=== PATIENT | female | born 1975 | race Caucasian/White ===

== ENCOUNTER 2023-01-24 18:29 | Emergency (ER) | payer OTHER ==
[~2023-01-24] VITALS: Ht 162.6 cm; Wt 77.1 kg
[2023-01-24 18:54] VITALS: BP_SYST 111
[2023-01-24 20:15] VITALS: BP_SYST 122
== END 2023-01-24 20:15 | disposition home or self-care (01) ==
LOC: SED 18:29
DX: T81.30XA Disruption of wound, unspecified, initial encounter (principal); Z48.00 Encounter for change or removal of nonsurgical wound dressing; Z79.899 Other long term (current) drug therapy
CPT/HCPCS: 99282

== ENCOUNTER 2023-05-16 14:14 | Inpatient (IN) | payer OTHER ==
[~2023-05-16] VITALS: Ht 160 cm; Wt 64.0 kg
[2023-05-16 14:32] VITALS: BP_SYST 118; PULSE 89; RESP 19; TEMP 98.1; O2SAT 96
[2023-05-16] MEDS ORDERED: METOCLOPRAMIDE HCL 10 MG/2 ML VIAL IVP ONE (15:00)
[2023-05-16] MEDS ORDERED: NACL 0.9% 1,000 ML IV ONE (15:00)
[2023-05-16] MEDS ORDERED: MORPHINE 4 MG INJ. 4 MG/ML VIAL IVP ONE (15:00)
[2023-05-16] MEDS ORDERED: DIPHENHYDRAMINE INJ 50 MG/ML VIAL IVP ONE (15:00)
[2023-05-16] MEDS ORDERED: KETOROLAC TROMETHAMINE 30 MG VIAL IVP ONE (15:00)
[2023-05-16 15:36] LABS: BILIRUBIN,URINE 1+ (NEGATIVE); BLOOD, URINE NEGATIVE (NEGATIVE); GLUCOSE,URINE NEGATIVE (NEGATIVE); KETONES,URINE 1+ (NEGATIVE); LEUKOCYTE ESTERASE ,URINE NEGATIVE (NEGATIVE); NITRITE, URINE NEGATIVE (NEGATIVE); PROTEIN URINE NEGATIVE (NEGATIVE); UROBILINOGEN,URINE 0.2 (0.2-1.0)
[2023-05-16] MEDS ORDERED: ONDANSETRON 4 MG ODT TAB PO ONE (16:00)
[2023-05-16] MEDS ORDERED: MORPHINE 4 MG INJ. 4 MG/ML VIAL IM ONE (16:00)
[2023-05-16 16:04] LABS: BASOPHILS # (AUTO) 0.1 K/uL (0.0-0.2); BASOPHILS % (AUTO) 0.4 % (0.0-2.0); HEMATOCRIT 39.3 % (36-48); HEMOGLOBIN 12.7 g/dL (12.0-16.0); LYMPHOCYTES # (AUTO) 1.2 K/uL (1.0-5.5); LYMPHOCYTES % (AUTO) 10.6 % (20.5-51.5); MEAN CORPUSCULAR HEMOGLOBIN 28 pg (27-31); MEAN CORPUSCULAR HGB CONC 32 % (32-36); MEAN CORPUSCULAR VOLUME 86 fL (79.0-98.0); MONOCYTES # (AUTO) 0.8 K/uL (0.0-1.0); MONOCYTES % (AUTO) 6.8 % (1.7-9.3); NEUTROPHILS # (AUTO) 9.6 K/uL (1.8-7.7); NEUTROPHILS % (AUTO) 82.2 % (40.0-70.0); PLATELET COUNT (AUTO) 392 K/uL (130-430); RED BLOOD CELL COUNT(AUTO) 4.59 MIL/uL (4.2-6.2); RED CELL DISTRIBUTION WIDTH 14.1 % (9.0-15.0); WHITE BLOOD COUNT (AUTO) 11.7 K/uL (4.8-10.8)
[2023-05-16 16:25] LABS: CALCIUM 8.9 mg/dL (8.4-11.0); CREATININE 0.55 mg/dL (0.55-1.30); POTASSIUM 3.6 mmol/L (3.5-5.1)
[2023-05-16 16:30] LABS: SERUM HCG (QUALITATIVE) NEGATIVE (NEGATIVE)
[2023-05-16 16:31] LABS: ALBUMIN 2.9 g/dL (3.4-4.8); TOTAL BILIRUBIN 0.6 mg/dL (0.0-1.0); TOTAL PROTEIN, SERUM 6.7 g/dL (6.4-8.3)
[2023-05-16 16:52] LABS: CLARITY/URINE CLEAR (CLEAR); COLOR,URINE YELLOW (YELLOW)
[2023-05-16] MEDS ORDERED: KETOROLAC TROMETHAMINE 30 MG VIAL ONE (17:26)
[2023-05-16] MEDS ORDERED: DIPHENHYDRAMINE INJ 50 MG/ML VIAL ONE (17:27)
[2023-05-16] MEDS ORDERED: LEVO100T PO (21:35)
[2023-05-16] MEDS ORDERED: TRAM50TA2 PO (21:35)
[2023-05-16] MEDS ORDERED: NACL 0.9% 1,000 ML IV SCH (23:15)
[2023-05-16] MEDS ORDERED: ACETAMINOPHEN 325 MG TABLET PO PRN (23:15)
[2023-05-16] MEDS ORDERED: HYDROcodone/ACETAMIN 10-325 MG TAB PO PRN (23:15)
[2023-05-16] MEDS ORDERED: ONDANSETRON HCL 4 MG/2 ML VIAL IVP PRN (23:15)
[2023-05-16] MEDS ORDERED: HYDROcodone/ACETAMIN 5-325 MG TAB (NORCO/ VICODIN) PO PRN (23:15)
[2023-05-17] MEDS ORDERED: KETOROLAC TROMETHAMINE 30 MG VIAL IM SCH
[2023-05-17] MEDS ORDERED: PIPERACILLIN/TAZO 3.375/DEX-IS 50 ML IV SCH
[2023-05-17] MEDS: CIPROFLOXACIN LACT 400 MG/D5W 200 ML IV SCH ×3 (03:30→20:48)
[2023-05-17] MEDS: metroNIDAZOLE 500 mg/NS 100 ML IV SCH ×4 (03:31→22:50)
[2023-05-17] MEDS ORDERED: NACL 0.9% 1,000 ML IV ONE (06:30)
[2023-05-17] MEDS ORDERED: MORPHINE 4 MG INJ. 4 MG/ML VIAL IVP ONE (07:30)
[2023-05-17 07:40] LABS: BASOPHILS % (AUTO) 0.5 % (0.0-2.0); EOSINOPHILS # (AUTO) 0.1 K/uL (0.0-0.4); EOSINOPHILS % (AUTO) 0.8 % (0.0-4.0); HEMATOCRIT 36.1 % (36-48); HEMOGLOBIN 11.4 g/dL (12.0-16.0); LYMPHOCYTES # (AUTO) 1.9 K/uL (1.0-5.5); LYMPHOCYTES % (AUTO) 20.7 % (20.5-51.5); MEAN CORPUSCULAR HEMOGLOBIN 27 pg (27-31); MEAN CORPUSCULAR HGB CONC 32 % (32-36); MEAN CORPUSCULAR VOLUME 87 fL (79.0-98.0); MONOCYTES # (AUTO) 0.8 K/uL (0.0-1.0); MONOCYTES % (AUTO) 8.9 % (1.7-9.3); NEUTROPHILS # (AUTO) 6.4 K/uL (1.8-7.7); NEUTROPHILS % (AUTO) 69.1 % (40.0-70.0); PLATELET COUNT (AUTO) 323 K/uL (130-430); RED BLOOD CELL COUNT(AUTO) 4.18 MIL/uL (4.2-6.2); RED CELL DISTRIBUTION WIDTH 13.7 % (9.0-15.0); WHITE BLOOD COUNT (AUTO) 9.3 K/uL (4.8-10.8)
[2023-05-17 07:59] LABS: ALBUMIN 2.1 g/dL (3.4-4.8); CALCIUM 7.8 mg/dL (8.4-11.0); CREATININE 0.49 mg/dL (0.55-1.30); POTASSIUM 3.6 mmol/L (3.5-5.1); TOTAL BILIRUBIN 0.5 mg/dL (0.0-1.0); TOTAL PROTEIN, SERUM 5.4 g/dL (6.4-8.3)
[2023-05-17] MEDS ORDERED: KETOROLAC TROMETHAMINE 60 MG/2 ML VIAL IM PRN (08:30)
[2023-05-17] MEDS: LEVOTHYROXINE SODIUM 0.1 MG TABLET PO SCH (09:22)
[2023-05-17] MEDS: MIDODRINE HCL 5 MG TABLET (PROAMATINE) PO SCH ×3 (10:00→20:48)
[2023-05-17 16:30] VITALS: BP_SYST 112; PULSE 78; RESP 18; TEMP 98
[2023-05-17] MEDS: MORPHINE 2 MG/ML INJ. SYRINGE IVP PRN (16:35)
[2023-05-17 18:33] VITALS: BP_SYST 112; PULSE 68; RESP 18; TEMP 97.8
[2023-05-17 20:00] VITALS: BP_SYST 101; PULSE 64; RESP 18; TEMP 97.7
[2023-05-17] MEDS: HYDROcodone/ACETAMIN 5-325 MG TAB (NORCO/ VICODIN) PO PRN (21:15)
[2023-05-17 21:54] VITALS: O2SAT 98
[2023-05-18] MEDS: MORPHINE 2 MG/ML INJ. SYRINGE IVP PRN (04:18)
[2023-05-18] MEDS: metroNIDAZOLE 500 mg/NS 100 ML IV SCH (06:06)
[2023-05-18 06:07] VITALS: BP_SYST 102; PULSE 64; RESP 18; TEMP 97.7; O2SAT 97
[2023-05-18] MEDS: HYDROcodone/ACETAMIN 5-325 MG TAB (NORCO/ VICODIN) PO PRN (06:17)
[2023-05-18] MEDS: LEVOTHYROXINE SODIUM 0.1 MG TABLET PO SCH (06:32)
[2023-05-18 08:00] VITALS: BP_SYST 95; PULSE 72; RESP 18; TEMP 98.8; O2SAT 95
[2023-05-18] MEDS: MIDODRINE HCL 5 MG TABLET (PROAMATINE) PO SCH (08:51)
[2023-05-18] MEDS: CIPROFLOXACIN LACT 400 MG/D5W 200 ML IV SCH (08:59)
[2023-05-18 12:00] VITALS: BP_SYST 98; PULSE 70; RESP 18; TEMP 98.2; O2SAT 95
[2023-05-18] MEDS ORDERED: CIPR-260 PO (14:55)
[2023-05-18] MEDS ORDERED: METR-154 PO (14:55)
[2023-05-18 15:04] VITALS: BP_SYST 100; PULSE 75; RESP 18; TEMP 98.2; O2SAT 95
== END 2023-05-18 15:30 | disposition home or self-care (01) | DRG 392 ==
LOC: SED 14:14 → SMU 23:01
PROVIDERS: ADMIT Family Medicine; ATTEND Family Medicine
DX: A09 Infectious gastroenteritis and colitis, unspecified (principal); L02.211 Cutaneous abscess of abdominal wall; E44.1 Mild protein-calorie malnutrition; E87.1 Hypo-osmolality and hyponatremia; E86.0 Dehydration; I10 Essential (primary) hypertension; E03.9 Hypothyroidism, unspecified; F10.10 Alcohol abuse, uncomplicated; Y90.9 Presence of alcohol in blood, level not specified; Z90.710 Acquired absence of both cervix and uterus; Z90.49 Acquired absence of other specified parts of digestive tract; Z80.1 Family history of malignant neoplasm of trachea, bronchus and lung; Z68.25 Body mass index [BMI] 25.0-25.9, adult; D18.03 Hemangioma of intra-abdominal structures
CPT/HCPCS: 36415; 76376; 76705; 80053; 81001; 81003; 83605; 83690; 84703; 85025; 87040; 99285; J0744; J1200; J1885; J2270; J2405; J3490; Q0162; Q9967

== ENCOUNTER 2023-07-04 08:38 | Outpatient (CLI) | payer OTHER ==
[~2023-07-04 08:38] MED LIST: CIPR-260 PO; LEVO100T PO; METR-154 PO; TRAM50TA2 PO
== END 2023-07-04 18:25 | disposition home or self-care (01) ==
LOC: SCT 08:38
PROVIDERS: ADMIT Family Medicine; ATTEND Internal Medicine Infectious Disease
DX: D18.09 Hemangioma of other sites (principal); K59.09 Other constipation; N83.202 Unspecified ovarian cyst, left side; K44.9 Diaphragmatic hernia without obstruction or gangrene; R10.84 Generalized abdominal pain; I87.8 Other specified disorders of veins
CPT/HCPCS: 76376

== ENCOUNTER 2023-07-11 18:40 | Emergency (ER) | payer OTHER ==
[~2023-07-11] VITALS: Ht 165.1 cm; Wt 87.1 kg
[2023-07-11 18:53] VITALS: BP_SYST 122; PULSE 80; RESP 18; TEMP 98.1; O2SAT 100
[2023-07-11 20:55] LABS: BASOPHILS # (AUTO) 0.1 K/uL (0.0-0.2); EOSINOPHILS # (AUTO) 0.1 K/uL (0.0-0.4); EOSINOPHILS % (AUTO) 1.3 % (0.0-4.0); HEMATOCRIT 42.2 % (36-48); HEMOGLOBIN 13.7 g/dL (12.0-16.0); LYMPHOCYTES # (AUTO) 2.8 K/uL (1.0-5.5); LYMPHOCYTES % (AUTO) 42.1 % (20.5-51.5); MEAN CORPUSCULAR HEMOGLOBIN 28 pg (27-31); MEAN CORPUSCULAR HGB CONC 33 % (32-36); MEAN CORPUSCULAR VOLUME 86 fL (79.0-98.0); MONOCYTES # (AUTO) 0.4 K/uL (0.0-1.0); MONOCYTES % (AUTO) 6.4 % (1.7-9.3); NEUTROPHILS # (AUTO) 3.3 K/uL (1.8-7.7); NEUTROPHILS % (AUTO) 49.2 % (40.0-70.0); PLATELET COUNT (AUTO) 260 K/uL (130-430); RED BLOOD CELL COUNT(AUTO) 4.94 MIL/uL (4.2-6.2); RED CELL DISTRIBUTION WIDTH 14.4 % (9.0-15.0); WHITE BLOOD COUNT (AUTO) 6.7 K/uL (4.8-10.8)
[2023-07-11 21:20] LABS: CALCIUM 9.7 mg/dL (8.4-11.0); CREATININE 0.67 mg/dL (0.55-1.30)
[2023-07-11 21:31] LABS: ALBUMIN 4.2 g/dL (3.4-4.8); TOTAL BILIRUBIN 0.3 mg/dL (0.0-1.0); TOTAL PROTEIN, SERUM 7.6 g/dL (6.4-8.3)
[2023-07-11 22:20] VITALS: BP_SYST 122; PULSE 80; RESP 18; TEMP 98.1; O2SAT 100
== END 2023-07-11 22:20 | disposition home or self-care (01) ==
LOC: SED 18:40
DX: R42 Dizziness and giddiness (principal); E03.9 Hypothyroidism, unspecified; Z79.899 Other long term (current) drug therapy
CPT/HCPCS: 36415; 70450-TC; 76376; 80053; 84484; 84702; 85025; 93005; 99284